=== PATIENT | female | born 1970 | race Caucasian/White ===

== ENCOUNTER 2019-09-01 14:04 | Outpatient (CLI) | payer OTHER, SELFPAY ==
--- NOTE | ~2019-09-01 | MM_ITS ---
EXAMINATION: MM scrn reid implant BI w wild HISTORY: Screening mammogram TECHNIQUE: Craniocaudal and mediolateral oblique 3-D tomosynthesis images with implant displacement a nd synthetic 2-D images were generated. Craniocaudal and mediolateral oblique views of the breasts wi thout implant displacement were obtained using full field digital mammography. CAD analysis was submi tted and interpreted. COMPARISON: No prior mammogram is available for comparison at this institution. BREAST PARENCHYMAL COMPOSITION: There are scattered areas of fibroglandular density. FINDINGS: Bilateral deflated breast implants. There is no evidence of suspicious mass, calcification, or architectural distortion to suggest malignancy in either breast. There has been no suspicious int erval change. IMPRESSION: Bilateral deflated implants 1. No mammographic evidence of malignancy. 2. Recommend routine screening mammography in one year. BI-RADS Category 1: Negative Reviewed, dictated and finalized at location A.
== END 2019-09-01 14:05 | disposition home or self-care (01) ==
LOC: ANHIMG 14:10
PROVIDERS: PCP Family Medicine; Visit Provider Family Medicine
DX: Z12.31 Encounter for screening mammogram for malignant neoplasm of breast (principal)
CPT/HCPCS: 77063; 77067

== ENCOUNTER 2019-09-12 00:06 | Outpatient (CLI) | payer OTHER, SELFPAY ==
[2019-09-12 18:41] LABS: SARS-CoV-2 RNA PCR Negative
== END 2019-09-12 00:07 | disposition home or self-care (01) ==
LOC: ANHCOVIDDT 00:06
PROVIDERS: PCP Family Medicine; Visit Provider Surgery Plastic and Reconstructive Surgery
DX: Z01.818 Encounter for other preprocedural examination (principal); Z11.59 Encounter for screening for other viral diseases
CPT/HCPCS: 87635; C9803; U0003

== ENCOUNTER 2019-09-15 00:52 | Day surgery (SDC) | payer OTHER, SELFPAY ==
[2019-09-08 10:54] VITALS: BMI 22.8
[2019-09-15] VITALS (9 sets, daily range): BP systolic 120–146; BP diastolic 67–92; PULSE 64–92; RESP 11–20; TEMP 36.2–36.4; O2SAT 93–100
[2019-09-15] MEDS: LACTATED RINGERS 1,000 ML 30 ML IV CONT ×2 (10:55→13:00)
--- NOTE | 2019-09-15 11:13 | WPDANESEPPF ---
Anes - Initial Pre Proc Eval Procedure: Operation Date: 09/15/19 12:30 Proposed Procedures p Removal Bilateral Breast Implants - Shawn Obrien MD Date/Time: 09/15/19 11:13 Surgeon: Shawn Obrien MD Pre Op Diagnosis: Ruptured Breast Implants Patient Data Age: 49 Gender: F Height: 5 ft 4 in Weight: 59.6 kg Last Vital Signs Temp 36.2 C L 09/15/19 10:33 Pulse 64 09/15/19 10:33 Resp 16 09/15/19 10:33 BP 124/67 09/15/19 10:33 Pulse Ox 100 09/15/19 10:33 Allergies Allergy/AdvReac Type Severity Reaction Status Date / Time No Known Allergies Allergy Verified 09/08/19 10:54 Home Medications Medication Instructions Recorded Confirmed Type bupropion HCl 150 mg PO DAILY 09/08/19 09/08/19 History melatonin 1 tablet PO HS PRN 09/08/19 09/08/19 History psyllium husk [Metamucil] 1 tbsp PO DAILY 09/08/19 09/08/19 History hydrocodone 5 mg-acetaminophen 325 1 tablet PO Q6H PRN #15 tablet 09/11/19 09/11/19 Rx mg tablet ondansetron HCl 4 mg tablet 4 mg PO Q6H #30 tablet 09/11/19 09/11/19 Rx Patient hx anesthesia problems: none Family hx anesthesia problems: none [facility] Past Medical History Medical History (Updated 09/15/19 @ 11:13 by Norris Paul MD) Anxiety Surgical History Surgical History History of Social History Social History Smoking status: Former smoker Alcohol intake: current Anes - Eval Final PreProcedure Day of Procedure 09/15/19 11:13 Patient weight: normal Heart: regular rate and rhythm Lungs: clear to auscultation Airway: Mallampati scale class II Neurological: alert and oriented Last oral intake: >/= 8 hours ASA classification: I Emergent: no Anesthetic plan: proceed Anesthesia type and monitoring: general LMA and standard monitoring Informed Consent: The patient's anesthetic plan and its attendant risks and benefits were discussed with the patient/family/POA. Questions were solicited and answers provided to the satisfaction of the patient/family/POA.
--- NOTE | 2019-09-15 11:25 | WPDHPUPDATE1 ---
History and Physical Update Update Date/Time: 09/15/19 11:25 History and Physical has been reviewed, including an updated exam of the patient. There are NO changes in the patient's condition. Risks, benefits, and alternatives have been discussed and questions answered. Patient agrees to proceed with procedure.
--- NOTE | 2019-09-15 11:31 | PM.PROC ---
Procedure Note - Detailed Date of procedure: 09/15/19 Pre-op diagnosis: Ruptured Breast Implants Post-op diagnosis: same Procedure performed: Bilateral breast implant removal Description of procedure: After consent was obtained the patient was taken to the operating room placed supine on the operating room table. Anesthesia was provided by anesthesiology and prepped and draped in a standard sterile fashion. 1% lidocaine and 0.25% Marcaine with epinephrine was used to anesthetize is a field block. A 15 blade used to excise the previous scar. Dissection was continued down until the implant was identified and the implant was removed. I found no abnormal findings. I irrigated with a total volume of 3 L of saline on TUR tubing. I then placed bilateral 15 [place] drains which were sutured into place with a 3-0 nylon. Breast was closed using 2-0 Vicryl followed by 3-0 Monocryl in a running subcuticular 4-0 Monocryl and tissue glue. She tolerated the procedure well. She was taken to the PACU without difficulty. All instrument sponge counts were correct at the end of the case. Anesthesia: GLMA Surgeon: Shawn Obrien MD Drains: Yes (Bilateral [place]) Packing: No Pathology: none sent Complications: No immediate complications Condition: stable Disposition: PACU Findings: Smooth implants identified. No worrisome features of the implant, capsule, or kayleigh implant space.
[2019-09-15] MEDS: ceFAZolin 2 GM/D5W 50 ML 2 GM/50 ML BAG IVPB (11:54)
[2019-09-15] MEDS: LIDO 1%/EPINEPHRINE 1:100,000 20 ML VIAL 40 ML INFILTRATE (12:32)
[2019-09-15] MEDS: ONDANSETRON INJ 4 MG/2 ML VIAL IV PUSH (14:40)
== END 2019-09-15 15:10 | disposition home or self-care (01) ==
PROVIDERS: PCP Family Medicine; Visit Provider Surgery Plastic and Reconstructive Surgery
PROC: 0HPT0JZ Removal of Synthetic Substitute from Right Breast, Open Approach (ICD-10-PCS; CPT 19330; principal; 2019-09-15 12:30)
DX: T85.41XA Breakdown (mechanical) of breast prosthesis and implant, initial encounter (principal); Y83.8 Other surgical procedures as the cause of abnormal reaction of the patient, or of later complication, without mention of misadventure at the time of the procedure; F41.9 Anxiety disorder, unspecified; Z87.891 Personal history of nicotine dependence
CPT/HCPCS: 19330; J0690; J2250; J2370; J2405; J3010; J7120

== ENCOUNTER 2019-11-30 23:34 | Emergency (ER) | payer OTHER, SELFPAY ==
[2019-11-30 23:43] VITALS: BP 131/80; PULSE 73; RESP 18; TEMP 36.1; O2SAT 94
--- NOTE | 2019-12-01 00:06 | ED.FEMALEGU ---
HPI - Female Genitourinary General Chief complaint: Vaginal Bleeding Stated complaint: vaginal bleeding Time Seen by Provider: 11/30/19 23:40 History of Present Illness HPI Narrative: 49 yo female present to the ED for vaginal bleeding. Hysterectomy on 11/12. Bleeding had lightened until today. [place] in the day she felt a sudden painful pop in her pelvis. Later she had a large gush of blood and passed some clots. Bleeding has decreased since that time, but continues to be heavy. Related Data Home Medications Medication Instructions Recorded Confirmed Metamucil 1 tbsp PO DAILY 09/08/19 09/08/19 bupropion HCl 150 mg PO DAILY 09/08/19 09/08/19 melatonin 1 tablet PO HS PRN 09/08/19 09/08/19 Allergies Allergy/AdvReac Type Severity Reaction Status Date / Time No Known Allergies Allergy Verified 11/22/19 08:40 Review of Systems Review of Systems: All systems reviewed & are unremarkable except as noted in HPI and below Cardiovascular: Cardiovascular: Denies chest pain Respiratory: Respiratory: Denies dyspnea Gastrointestinal: Gastrointestinal: Denies abdominal pain, Denies nausea and Denies vomiting Genitourinary: Genitourinary: Reports abnormal vaginal bleeding and Denies dysuria Musculoskeletal: Musculoskeletal: Denies back pain Neurologic: Denies dizziness and Denies weakness [facility] Past Medical History Medical History Anxiety Surgical History Surgical History History of Social History Social History Smoking status: Former smoker Alcohol intake: current Exam Const: General: healthy appearing, no acute distress and alert Orientation/consciousness: patient oriented x3 HENMT: Head: normal to inspection Resp: Effort & Inspection: normal respiratory effort Auscultation: clear to auscultation bilaterally, no rales, no rhonchi and no wheezes Cardio: Jugular venous distension: no JVD Rate: regular rate Rhythm: regular rhythm Heart sounds: no murmurs GI: Inspection: non-distended GI Palp: Yes Soft to palpation and No Tenderness to palpation present (GI) : External Female Exam: normal external appearance Other: Small area of wound dehisence with small clot extruding. No active bleeding. Skin: General skin exam: normal color Neuro: General: patient oriented x3 and moves all extremities Speech: normal speech Extrem: General: no edema Psych: Appearance: well kempt Affect: normal affect Course Vital Signs Vital signs: Vital Signs Temperature 36.1 C L 11/30/19 23:43 Pulse Rate 73 11/30/19 23:43 Respiratory Rate 18 11/30/19 23:43 Blood Pressure 131/80 11/30/19 23:43 Pulse Oximetry 94 11/30/19 23:43 Temperature 36.1 C L 11/30/19 23:43 Pulse Rate 62 12/01/19 02:15 Respiratory Rate 16 12/01/19 02:15 Blood Pressure 101/57 L 12/01/19 02:15 Pulse Oximetry 98 12/01/19 02:15 MDM - Female Genitourinary MDM Narrative Medical decision making narrative: Case discussed with patient's OB. She will see her first thing in the morning. No current intervention needed Medical Records Attestation: I reviewed the patient's medical records. Lab Data Attestation: I reviewed the patient's lab results. Result diagrams: 12/01/19 00:25 12/01/19 00:25 Labs: Lab Results 12/01/19 12/01/19 12/01/19 Range/Units 00:25 00:25 00:25 WBC 5.6 (4.5-10.0) K/mm3 RBC 4.09 L (4.2-5.4) M/mm3 Hgb 13.2 (12.0-15.0) g/dL Hct 39.2 (37.0-47.0) % MCV 95.8 (80-100) fl MCH 32.3 (26-34) pg MCHC 33.7 (32-36) g/dl RDW 12.4 (11.5-14.5) % Plt Count 422 H (150-375) k/mm3 MPV 9.9 (7.4-10.4) fl Immature Gran % (Auto) 0.4 (0-0.5) % Neut % (Auto) 38.8 L (45.5-73.1) % Lymph % (Auto) 47.3 H (18.3-44.2) % [place] % (Auto) 6.9
[2019-12-01 00:40] LABS: Basophils Absolute Auto 0.1 K/mm3 (0.0-0.1); Basophils Percent Auto 2.3 % (0.2-1.2); Eosinophils Absolute Auto 0.2 K/mm3 (0-0.3); Eosinophils Percent Auto 4.3 % (0-4.4); Hematocrit 39.2 % (37.0-47.0); Hemoglobin 13.2 g/dL (12.0-15.0); Immature Granulocyte Absolute 0.02 K/mm3 (0.00-0.031); Immature Granulocyte Percent A 0.4 % (0-0.5); Lymphocytes Absolute Auto 2.66 K/mm3 (0.9-3.2); Lymphocytes Percent Auto 47.3 % (18.3-44.2); Mean Corpuscular HGB Conc 33.7 g/dl (32-36); Mean Corpuscular Hemoglobin 32.3 pg (26-34); Mean Corpuscular Volume 95.8 fl (80-100); Mean Platelet Volume 9.9 fl (7.4-10.4); Monocytes Absolute Auto 0.4 K/mm3 (0.1-0.6); Monocytes Percent Auto 6.9 % (2.6-8.5); Neutrophils Absolute Auto 2.2 K/mm3 (1.3-6.7); Neutrophils Percent Auto 38.8 % (45.5-73.1); Platelet Count Result 422 k/mm3 (150-375); Red Blood Count 4.09 M/mm3 (4.2-5.4); Red Cell Distribution Width 12.4 % (11.5-14.5); White Blood Count 5.6 K/mm3 (4.5-10.0)
[2019-12-01 00:50] LABS: INR 0.9; Partial Thromboplastin Time 30.3 SECONDS (22.3-36.8); Prothrombin Time 12.3 Seconds (11.1-14.7)
[2019-12-01 00:53] LABS: Anion Gap 11.8 mmol/L (7-16); Blood Urea Nitrogen 12 mg/dL (7-17); Carbon Dioxide 25 mmol/L (22-30); Chloride 107 mmol/L (98-107); Estimated CRCL calculation 82 ml/min; Estimated Glomerular Filt Rate > 60; Glucose 104 mg/dL (65-105); Potassium 3.8 mmol/L (3.4-5.0); Sodium 140 mmol/L (137-145)
[2019-12-01 02:11] LABS: Add Urine Microscopic? YES; Appearance Urine Clear (Clear); Bacteria Urine Trace /hpf; Bilirubin Urine Negative (Negative); Blood Urine 3+ (Negative); Color Urine Straw (Yellow); Glucose Urine UA Negative (Negative); Ketones Urine Negative (Negative); Leukocyte Esterase Ur Negative LEU/UL (Negative); Nitrate Urine Negative (Negative); Protein Urine Negative (Negative); RBC Urine 0-2 /hpf (0-2); Squamous Epithelial Cell Urine Rare /hpf (Few); Urobilinogen Urine Negative mg/dL (<2.0); WBC Urine 0-3 /hpf
[2019-12-01 02:15] VITALS: BP 101/57; PULSE 62; RESP 16; O2SAT 98
[2019-12-01 02:17] LABS: Specific Grav Ur 1.004 (1.001-1.035)
== END 2019-12-01 02:25 | disposition home or self-care (01) ==
PROVIDERS: Emergency Provider Emergency Medicine; PCP Family Medicine
DX: N99.820 Postprocedural hemorrhage of a genitourinary system organ or structure following a genitourinary system procedure (principal); F41.9 Anxiety disorder, unspecified; Z87.891 Personal history of nicotine dependence
CPT/HCPCS: 36415; 80048; 81001; 85025; 85610; 85730; 86850; 86900; 86901; 99283